=== PATIENT | female | born 1980 ===

== ENCOUNTER 2025-02-14 11:20 | Outpatient (CLI) | payer OTHER | END 2025-02-14 11:26 | disposition home or self-care (01) | LOC: MAMO-SONO 11:20 | PROVIDERS: ATTEND Obstetrics & Gynecology | DX: N60.11 Diffuse cystic mastopathy of right breast (principal); R05.9 Cough, unspecified ==

== ENCOUNTER 2025-02-23 08:31 | Outpatient (CLI) | payer OTHER ==
[2025-02-24] MEDS ORDERED: ZYRTEC10 M3 PO ×2 (14:09)
[2025-02-24] MEDS ORDERED: CLARITIN10 M1 PO (14:10)
[2025-02-24] MEDS ORDERED: NASONEX 24HR AL17 ML NS (14:12)
== END 2025-02-23 08:32 | disposition home or self-care (01) ==
LOC: EKG 08:31
PROVIDERS: ATTEND Obstetrics & Gynecology
DX: R07.9 Chest pain, unspecified (principal)

== ENCOUNTER 2025-03-01 07:00 | Day surgery (SDC) | payer OTHER ==
[~2025-03-01 07:00] MED LIST: CLARITIN10 M1 PO; NASONEX 24HR AL17 ML NS; ZYRTEC10 M3 PO
[2025-03-01] MEDS ORDERED: POVIDONE-IODINE 118 ML BOTT TOP ONE (13:19)
[2025-03-01] MEDS ORDERED: PROMETHAZINE HCL 50 MG/ML AMPUL IM ONE (14:30)
== END 2025-03-01 19:40 | disposition home or self-care (01) ==
LOC: CIR.AMB 07:00
PROVIDERS: ATTEND Obstetrics & Gynecology
DX: N84.0 Polyp of corpus uteri (principal); A63.0 Anogenital (venereal) warts